=== PATIENT | female | born 1950 | race Caucasian/White ===

== ENCOUNTER 2018-01-05 17:33 | Inpatient (IN) | payer MEDICARE ==
--- NOTE | ~2018-01-05 | DS ---
PATIENT:BERT MARTINEZ :52 MEDICAL RECORD: [id number] DISCHARGE SUMMARY ADMISSION DATE: 01/05/18 DISCHARGE DATE: 01/06/18 DATE OF ADMISSION: 01/05/2018 DATE OF DISCHARGE: 01/06/2018 HISTORY OF PRESENT ILLNESS: A 67-year-old white female accepted on transfer from [facility] with severe anxiety and secondary depressive symptoms. For further details, see previously dictated history. COURSE IN HOSPITAL: The patient was examined by Dr. Brooke and by myself. On the day following admission, the patient clearly stated that she did not have any suicidal ideation or intent. She stated that the person who assessed her correctly misstated that the patient had been suicidal in the past, but that she was not now. The patient emphasized repeatedly that her primary problem was insomnia and anxiety. The patient went on to state that she felt very uncomfortable on this unit and felt that she could not receive adequate help here. The patient does have family that is involved in her care and does have caregivers where she had been staying. The patient was maintained on her previous dose of Effexor XR 225 mg daily. Lengthy discussion was held with the patient regarding her symptoms of anxiety. Her symptoms most closely mirror generalized anxiety disorder as opposed to panic disorder, specific phobias, PTSD or OCD. It was discussed with the patient that close followup with psychiatrist is strongly indicated. Since the patient has not done well on SSRI type antidepressants nor on trazodone nor on a recent trial of Seroquel, it was suggested to the patient that future treatment possibilities would include Abilify or monoamine oxidase inhibitors. It was again very strongly emphasized to the patient that a very close followup was required in order to continue her treatment. In view of the fact that the patient did not wish to remain in the hospital and in fact stated that if necessary she would sign out against medical advice, decision was made to proceed with discharge. She will follow up with primary care physician as well as active psychiatric treatment. FINAL DIAGNOSES: AXIS I: Generalized anxiety disorder, secondary depression. AXIS II: Deferred. AXIS III: Hyperlipidemia, history of back surgery. AXIS IV: Moderate. AXIS V: 55. PLAN: 1. The patient is discharged on current medication. 2. Follow up as described above. TRANSINT:[id number] Voice Confirmation ID: [id number] DOCUMENT ID: [id number] DISCHARGE SUMMARY REPORT [id number] BERT MARTINEZ III, TED Moe MD at 0736 CC: [id number] DICTATION DATE: 01/06/18 1134 WORKDAY MANAGER: 01/07/18 0850 DIS IN 01/06/18 [facility] [address] [place] [address]
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
[2018-01-05 21:02] VITALS: BP 137/95
[2018-01-05] MEDS ORDERED: EFFEXOR XR75 MG PO (21:35)
[2018-01-05 23:55] LABS: HEMATOCRIT 37.3 % (36.0-48.0); HEMOGLOBIN 12.8 g/dL (12-16); MCH 32.3 pg (26.0-34.0); MCHC 34.3 g/dL (31.0-37.0); MCV 94.2 fL (80.0-100.0); MEAN PLATELET VOLUME 10.5 fL (7.4-10.4); NEUTROPHILS 68.9 % (40-80); PLATELET COUNT 214 10x3/uL (130-400); RBC 3.96 10x6/uL (4.00-5.40); RDW 12.2 % (11.5-14.5); WBC 6.9 10x3/uL (4.8-10.8)
[2018-01-06 00:27] LABS: ALBUMIN 3.6 g/dL (3.4-5.0); ALKALINE PHOSPHATASE 112 U/L (46-116); ALT (SGPT) 36 U/L (10-68); CALC OSMOLALITY 281 mosm/kg (275-300); CALCIUM 8.7 mg/dL (8.5-10.1); CARBON DIOXIDE 24.6 mmol/L (21.0-32.0); CHLORIDE - SERUM 107 mmol/L (98-107); CHOL - HDL RATIO 3.8 ratio (2.3-4.1); CHOLESTEROL, TOTAL 266 mg/dL (0-200); CREATININE - SERUM 0.8 mg/dL (0.6-1.3); GLUCOSE 105 mg/dL (74-106); HDL CHOLESTEROL 70 mg/dL (32-96); LDL CHOLESTEROL 188 mg/dL (0-100); LDL-HDL RATIO 2.7 ratio (1.5-3.5); POTASSIUM - SERUM 3.7 mmol/L (3.5-5.1); PROTEIN - SERUM 7.1 g/dL (6.4-8.2); SODIUM 141 mmol/L (136-145); THYROID STIMULATING HORMONE 0.44 uIU/mL (0.36-3.74); TRIGLYCERIDE 43 mg/dL (30-200); UREA NITROGEN 16 mg/dL (7-18); eGFR NON AFRICAN AMERICAN 76 mL/min (90-120)
[2018-01-06 07:46] VITALS: BP 131/60
[2018-01-06 10:11] LABS: APPEARANCE CLEAR (CLEAR); BACTERIA FEW /hpf (NONE SEEN); BILIRUBIN NEGATIVE (NEGATIVE); COLOR YELLOW (YELLOW); EPITHELIAL CELLS 0-5 /hpf (0-5); GLUCOSE NEGATIVE (NEGATIVE); KETONE MODERATE mg/dL (NEGATIVE); MUCUS <1+ /lpf (NONE SEEN); NITRITE NEGATIVE (NEGATIVE); PROTEIN NEGATIVE (NEGATIVE); SPECIFIC GRAVITY 1.015 (1.005-1.020); UROBILINOGEN NORMAL (NORMAL)
[2018-01-06 11:32] VITALS: Wt 73.6 kg
[2018-01-07 07:29] LABS: RAPID PLASMA REAGIN Non Reactive (Non Reactive)
[2018-01-07 08:22] LABS: FOLATE (FOLIC ACID) - SERUM >20.0 ng/mL (>3.0)
[2018-01-07 09:19] LABS: VITAMIN D 25 HYDROXY 37.2 ng/mL (30.0-100.0)
== END 2018-01-06 17:03 | disposition other institution (70) | DRG 880 ==
LOC: D.PSYCH 17:33
PROVIDERS: Psychiatry & Neurology Psychiatry
DX: F41.1 Generalized anxiety disorder (principal); R45.851 Suicidal ideations; F32.9 Major depressive disorder, single episode, unspecified; E78.5 Hyperlipidemia, unspecified; J30.9 Allergic rhinitis, unspecified; M79.7 Fibromyalgia